=== PATIENT | female | born 1955 | race Caucasian/White ===

== ENCOUNTER → 2016-05-20 | Outpatient (CLI) | payer OTHER ==
[~2016-05-20] MED LIST: ASCA500 PO; ASTRAGALUS PO; GREEN TEA PO; HYDC25 PO; LEVO75TA33 PO; MULT-506 PO; OMEG10007 PO; POTA10CA28 PO; ZNTT/150 PO; [UNRECOGNIZED DRUG - OTHER] PO
--- NOTE | 2016-05-22 08:30 | MAMMOGRAPHY REPORT ---
UNILATERAL LEFT DIGITAL DIAGNOSTIC MAMMOGRAM TOMOSYNTHESIS WITH CAD AND TARGETED LEFT ULTRASOUND: 03/2017 CLINICAL HISTORY: The patient reports a palpable lump in her left surgical bed felt by her physician , as well as a lump in the superior sternal region and left axillary region. She also reports bilat eral breast pain and nipple tenderness for approximately 2 months, which is greatest in the left upp er outer quadrant. She also reports pain in her left arm and shoulder region. History of bilateral breast cancer. TECHNIQUE: Breast tomosynthesis in addition to standard 2D mammography was performed. Current study was also evaluated with a Computer Aided Detection (CAD) system. Left CC and MLO 2-D and tomosynth esis images were obtained. COMPARISON: Comparison is made to exams dated: 10/11/2015 mammogram, 10/05/2014 mammogram, 09/29/2013 m ammogram, 10/04/2013 mammogram, 09/18/2011 mammogram, and 09/23/2012 mammogram - [facility]. BREAST COMPOSITION: The tissue of the left breast is heterogeneously dense, which may obscure small masses. FINDINGS: A triangle marker ríos the site of the palpable lump in the left 12:00 region. There has been no significant interval change mammographically compared to prior exams. There are stable pos tsurgical changes in the left 12:00 breast from prior lumpectomy, including stable architectural dis tortion and density, surgical clips, and coarse benign dystrophic calcifications at the lumpectomy b ed. A biopsy marker clip is again noted in the left medial breast. Scattered benign-appearing calc ifications are stable. Left axillary surgical clips are also noted. There are no suspicious masses , calcifications, or areas of architectural distortion noted in the left breast. Targeted ultrasound was performed of the left axillary region, at the site of one of the palpable simone mps felt by the patient. No suspicious masses or other suspicious sonographic abnormalities are rupinder dent. Multiple morphologically normal left axillary lymph nodes are seen, without evidence of adeno vianney. Targeted ultrasound was performed of the left upper inner quadrant along the medial aspect of the sc ar, at the site of the other palpable lump felt by the patient's physician. An ill-defined hypoecho ic region with shadowing is seen in this region, consistent with postsurgical changes, with no suspi cious mass or other suspicious abnormality seen. Targeted ultrasound was performed of the left superior sternal region at the site of the patient's r adiation tattoo, at the site of the other palpable lump felt by the patient. Sonographically normal tissue is seen in this region, without evidence of a mass or other suspicious sonographic abnormali ty. Targeted ultrasound of the left upper outer quadrant at the site of the most prominent pain pointed out by the patient demonstrates no suspicious masses or other suspicious findings. IMPRESSION: ACR BI-RADS CATEGORY 2: BENIGN, TARGETED ULTRASOUND ACR BI-RADS CATEGORY 2: BENIGN No suspicious mammographic or sonographic abnormalities at the sites of palpable left breast/axillar y lumps and left breast pain. There is no mammographic or targeted sonographic evidence of malignan cy. Recommend clinical follow-up; any decision to biopsy should be based on clinical grounds. Also recommend routine bilateral screening mammograms which are due October 2016. The patient has been jorge bally notified of the results. Approximately 10% of breast cancers are not detected with mammography. A negative mammographic repor t should not delay biopsy if a clinically suggestive mass is present. Nita Atwood M.D. ah/:05/20/2016 11:29:53 Container Crane Operator: Sultana LEYVA)(Amy), [facility] letter sent: Normal 1/2 BI-RADS Code: ACR BI-RADS Category 2: Benign Ultrasound BI-RADS: ACR BI-RADS Category 2: Benign
== END | disposition home or self-care (01) ==
LOC: C.MAMM 10:30
PROVIDERS: ATTEND Family Medicine
DX: N64.4 Mastodynia (principal); Z85.3 Personal history of malignant neoplasm of breast

== ENCOUNTER → 2016-10-16 | Outpatient (CLI) | payer OTHER ==
--- NOTE | 2016-10-19 13:12 | MAMMOGRAPHY REPORT ---
BILATERAL DIGITAL SCREENING MAMMOGRAM TOMOSYNTHESIS WITH CAD: 10/16/2016 CLINICAL HISTORY: Routine screening. Patient has no complaints. TECHNIQUE: Breast tomosynthesis in addition to standard 2D mammography was performed. Current study was also evaluated with a Computer Aided Detection (CAD) system. COMPARISON: Comparison is made to exams dated: 05/20/2016 mammogram, 10/11/2015 mammogram, 10/05/2014 ma mmogram, 10/11/2013 stereotactic biopsy, 10/04/2013 mammogram, and 09/29/2013 mammogram - [facility]. BREAST COMPOSITION: The tissue of both breasts is heterogeneously dense, which may obscure small mas ses. FINDINGS: No suspicious masses, calcifications, or areas of architectural distortion are noted in ei ther breast. There has been no significant interval change compared to prior exams. There are stable postsurgical changes in the left 12:00 breast including stable architectural distortion, benign coar se dystrophic calcifications, and surgical clips at the surgical bed. There are also stable postsurg ical changes in the right medial posterior breast, including stable density and architectural distort ion at the surgical bed. Linear scar markers denote scars on the left 12:00 breast and right medial breast. Scattered bilateral benign-appearing calcifications are not significantly changed. A biopsy marker clip is again noted in the left medial breast. IMPRESSION: ACR BI-RADS CATEGORY 2: BENIGN There is no mammographic evidence of malignancy. A 1 year screening mammogram is recommended. The pa tient will receive written notification of the results. Approximately 10% of breast cancers are not detected with mammography. A negative mammographic report should not delay biopsy if a clinically suggestive mass is present. Nita Atwood M.D. ah/:10/16/2016 16:19:33 Peer Health Promoter: Sultana GALVEZ(R)(M), [facility] letter sent: Normal 1/2 BI-RADS Code: ACR BI-RADS Category 2: Benign
== END | disposition home or self-care (01) ==
LOC: C.MAMM 09:41
PROVIDERS: ATTEND Surgery
DX: Z12.31 Encounter for screening mammogram for malignant neoplasm of breast (principal)